=== PATIENT | female | born 1960 | race Caucasian/White ===

== ENCOUNTER → 2021-04-13 17:32 | Outpatient (REF) | payer MEDICAID, SELFPAY ==
[2021-04-13 17:46] LABS: Microscopic, Urine URINE MICROSCOPIC (MICROSCOPIC)
[2021-04-13 18:06] LABS: Appearance,Urine CLEAR (Clear); Bilirubin,Urine Negative (Negative); Blood, Urine 3+ (Negative); Color,Urine YELLOW (Yellow); Glucose,Urine (UA) Negative (Negative); Ketones,Urine Negative (Negative); Leukocyte Esterase,Urine 1+ (Negative); Nitrate,Urine POSITIVE (Negative); PH,Urine 7.5 (5.0-8.5); Protein,Urine 2+ (Negative); Specific Gravity, Urine 1.015 (1.005-1.030); Urobilinogen,Urine 0.2 EU/dl (0.2)
[2021-04-13 18:08] LABS: WBC,Urine TNTC #/hpf (0-3)
[2021-04-13 18:09] LABS: Bacteria,Urine 4+ /lpf
== END ==
LOC: LAB.DROPOF 17:32
PROVIDERS: Visit Provider Internal Medicine Adolescent Medicine
DX: N39.0 Urinary tract infection, site not specified (principal)
CPT/HCPCS: 81001; 87086; 87088; 87186

== ENCOUNTER 2022-02-21 08:46 | Outpatient (CLI) | payer MEDICAID, SELFPAY ==
[2022-02-21] VITALS (19 sets, daily range): BP systolic 128–169; BP diastolic 64–86; PULSE 60–73; RESP 15–18; TEMP 36–36.4; O2SAT 94–98; BMI 27.9
[2022-02-21 09:40] LABS: Hematocrit 23.6 % (37.0-47.0); Hemoglobin 7.8 g/dL (12.2-16.2)
[2022-02-21 16:03] LABS: Hematocrit 31.2 % (37.0-47.0)
[2022-02-21 16:18] LABS: Hemoglobin 10.7 g/dL (12.2-16.2)
== END 2022-02-21 15:54 | disposition home or self-care (01) ==
LOC: INF 08:47
PROVIDERS: Visit Provider Nurse Practitioner Family
DX: D64.9 Anemia, unspecified (principal)
CPT/HCPCS: 36430; 85014; 85018; 86850; P9016

== ENCOUNTER → 2022-08-05 14:07 | Outpatient (POV) | payer MEDICAID, SELFPAY | PROVIDERS: Visit Provider Internal Medicine Nephrology | DX: Z00.00 Encounter for general adult medical examination without abnormal findings (principal) ==

== ENCOUNTER 2022-08-13 09:37 | Outpatient (CLI) | payer MEDICAID, SELFPAY ==
[2022-08-13 10:05] VITALS: BP 135/86; PULSE 79; RESP 18; O2SAT 96
--- NOTE | 2022-08-13 10:50 | PC.NURSE ---
0060-called [facility];gave report to iza; notified that pt had had vomiting.
[2022-08-13 10:55] VITALS: BP 159/73; PULSE 81; RESP 18; TEMP 36.4; O2SAT 96
== END 2022-08-13 10:55 | disposition home or self-care (01) ==
LOC: INF 09:40
PROVIDERS: PCP Internal Medicine Adolescent Medicine; Visit Provider Internal Medicine Nephrology
DX: D64.9 Anemia, unspecified (principal)
CPT/HCPCS: 96365; J1439

== ENCOUNTER → 2022-08-17 23:39 | Outpatient (CLI) | payer MEDICAID, SELFPAY ==
[2022-08-18 00:36] LABS: Basophils % 0.1 % (0.1-2.0); Eosinophils # 0.1 K/mm3 (0.0-0.4); Lymphocytes # 0.4 K/mm3 (0.7-4.5); Mean Corpuscular Volume 96.3 fl (81-99); Monocytes # 0.5 K/mm3 (0.1-1.0)
[2022-08-18 00:43] LABS: Eosinophils % 0.4 % (0.1-12.0); Lymphocytes % 2.8 % (10-50); Mean Corpuscular HGB Conc 31.4 g/dL (31.8-35.4); Mean Corpuscular Hemoglobin 30.2 pg (27.0-31.2); Mean Platelet Volume 8.2 fl (7.4-10.4); Monocytes % 3.6 % (1.7-9.3); Neutrophils # 13.5 K/mm3 (1.8-7.8); Neutrophils % 93.1 % (37.0-80.0); Platelet Count 545 K/mm3 (142-424); Red Blood Count 1.98 M/mm3 (4.20-5.40); Red Cell Distribution Width 12.7 % (11.5-17.5); White Blood Count 14.5 K/mm3 (4.8-10.8)
[2022-08-18 00:49] LABS: MANUAL DIFFERENTIAL MANUAL DIFFERENTIAL (MANUAL DIFF)
[2022-08-18 01:08] LABS: Hypochromasia 1+; Lymphocytes % 5 % (10-50); Neutrophils % 89 % (42-76); Platelet Estimate Slight Increase; Rouleaux 3+; Total Cells Counted 100
[2022-08-18 01:22] LABS: Alanine Aminotransferase 14 U/L (12-78); Albumin Level 3.1 g/dl (3.5-5.0); Albumin/Globulin Ratio 1.3 (1.1-1.8); Alkaline Phosphatase 98 U/L (38-126); Anion Gap 28.7 mEq/L (5-15); Aspartate Amino Transferase 10 U/L (14-36); Bilirubin,Total 0.7 mg/dl (0.2-1.3); Calcium 8.2 mg/dl (8.4-10.2); Chloride 100 mmol/L (98-107); Globulin 2.3 g/dL (1.3-3.2); Glucose 79 mg/dl (74-100); Sodium 130 mmol/L (136-145); Total Protein,Serum 5.4 g/dl (6.3-8.2)
[2022-08-18 01:25] LABS: Carbon Dioxide 9 mmol/L (22.0-30.0); Potassium 7.7 mmoL/L (3.5-5.1)
[2022-08-18 01:26] LABS: Blood Urea Nitrogen 150 mg/dl (7-17); Estimated Glomerular Filt Rate 4 ml/min (>60); GFR (African American) 4 ML/MIN (>60)
== END ==
PROVIDERS: PCP Internal Medicine Adolescent Medicine; Visit Provider Internal Medicine Adolescent Medicine
DX: D64.9 Anemia, unspecified (principal); E87.5 Hyperkalemia
CPT/HCPCS: 80053; 85007; 85025

== ENCOUNTER 2022-08-18 01:31 | Emergency (ER) | payer MEDICAID, SELFPAY ==
[2022-08-18] VITALS (20 sets, daily range): BP systolic 101–159; BP diastolic 50–105; PULSE 65–107; RESP 13–20; TEMP 36.4–36.7; O2SAT 90–99; BMI 28.3; BMI 30.7
--- NOTE | 2022-08-18 01:26 | XR_ITS ---
PROCEDURE INFORMATION: Exam: XR Chest Exam date and time: 08/18/2022 1:54 AM Age: 62 years old Clinical indication: Cough TECHNIQUE: Imaging protocol: Radiologic exam of the chest. Views: 1 view. COMPARISON: No relevant prior studies available. FINDINGS: Lungs: Unremarkable. No consolidation. Pleural spaces: Unremarkable. No pleural effusion. No pneumothorax. Heart/Mediastinum: Unremarkable. No cardiomegaly. Bones/joints: Unremarkable. IMPRESSION: No acute cardiopulmonary abnormality.
--- NOTE | 2022-08-18 01:28 | HMH.EDGENADL ---
Discharge Plan Disposition Patient Disposition: Xfer Short-Term Hosp Chief Complaint: Recheck/Abnormal Lab/Rx Prescriptions Prescriptions: No Action amlodipine 5 MG tablet 5 mg PO BID fluticasone propionate 50 MCG blister with device 50 mcg NOSTRIL-B BID atorvastatin 80 MG tablet 80 mg PO HS labetalol 200 MG tablet 200 mg PO DAILY polyethylene glycol 3350 17 GM powder in packet 17 gm PO DAILY ondansetron HCl 4 MG tablet 4 mg PO Q8 PRN (Reason: Nausea) aspirin 81 MG tablet,delayed release (DR/EC) 81 mg PO DAILY pantoprazole 20 MG tablet,delayed release (DR/EC) 20 mg PO DAILY clonidine HCl 0.2 MG tablet 0.2 mg PO BID cyanocobalamin (vitamin B-12) 1,000 MCG/ML solution 1,000 mcg SQ MONTHLY trazodone 150 MG tablet 150 mg PO HS ferrous sulfate 325 MG tablet 325 mg PO DAILY losartan 25 MG tablet 25 mg PO DAILY ascorbic acid (vitamin C) 500 MG capsule 500 mg PO DAILY Clinical Impressions Clinical Impression: Acute renal failure, Acute hyperkalemia, Anemia requiring transfusions Discharge ED Provider: Yves Canela General Adult HPI General Chief complaint: Recheck/Abnormal Lab/Rx Stated complaint: possible GI Bleed Time Seen by Provider: 08/18/22 01:28 History of Present Illness HPI narrative: UlcersPatient is a 62-year-old female with past medical history of CVA with left-sided residual, anemia of chronic disease, CKD stage IV not on dialysis who presents to the emergency department for evaluation of laboratory abnormalities. History is obtained by nursing report, patient states she has no acute complaints other than slight cough. Per nursing report hematologic labs were drawn and had multiple abnormalities including reported creatinine greater than 11, hyperkalemia of 7, hemoglobin of 6 Related Data Home Medications Medication Instructions Recorded Confirmed amlodipine 5 mg tablet 5 mg PO BID Hypertension 02/21/22 08/13/22 ascorbic acid (vitamin C) 500 mg 500 mg PO DAILY Supplement 02/21/22 08/13/22 capsule aspirin 81 mg tablet,delayed 81 mg PO DAILY hypertension 02/21/22 08/13/22 release atorvastatin 80 mg tablet 80 mg PO HS Cholesterol 02/21/22 08/13/22 clonidine HCl 0.2 mg tablet 0.2 mg PO BID Hypertension 02/21/22 08/13/22 cyanocobalamin (vitamin B-12) 1,000 mcg SQ MONTHLY Supplement 02/21/22 08/13/22 1,000 mcg/mL injection solution ferrous sulfate 325 mg (65 mg 325 mg PO DAILY anemia 02/21/22 08/13/22 iron) tablet fluticasone propionate 50 50 mcg NOSTRIL-B BID allergies 02/21/22 08/13/22 mcg/actuation blister powder for inhalation labetalol 200 mg tablet 200 mg PO DAILY Hypertension 02/21/22 08/13/22 losartan 25 mg tablet 25 mg PO DAILY Hypertension 02/21/22 08/13/22 ondansetron HCl 4 mg tablet 4 mg PO Q8 PRN Nausea 02/21/22 08/13/22 pantoprazole 20 mg tablet,delayed 20 mg PO DAILY GERD 02/21/22 08/13/22 release polyethylene glycol 3350 17 gram 17 gm PO DAILY constipation 02/21/22 08/13/22 oral powder packet trazodone 150 mg tablet 150 mg PO HS insomia 02/21/22 08/13/22 Allergies Allergy/AdvReac Type Severity Reaction Status Date / Time hydrocodone Allergy Intermediate Verified 02/21/22 09:06 [facility] Medical History (Updated 08/18/22 @ 04:09 by Yves Canela MD) Anemia Anxiety and depression Cerebral infarction Chronic kidney disease Constipation GERD (gastroesophageal reflux disease) Hemiplegia and hemiparesis following cerebral infarction affecting left non-dominant side Hyperlipidemia Hypertension Psychophysiological insomnia Type 2 diabetes mellitus Surgical History (Updated 08/13/22 @ 14:49 by Quin Arreguin RN) Surgical history unknown Family History (Updated 08/13/22 @ 14:48 by Quin Arreguin RN) Other Unknown family medical history Social History (Updated 08/13/22 @ 14:48 by Quin Arreguin RN) Smoking Status: Never smoke
--- NOTE | 2022-08-18 01:30 | ECG_ITS ---
APPROVED REPORT Exam: Resting ECG HR:81 bpm ECG Measurements Heart Rate 81 AXES NJ 241 P 62 QRSd 109 QRS -12 QT 366 T 109 QTc 403 Conclusion SINUS RHYTHM WITH FIRST DEGREE AV BLOCK NONSPECIFIC T-WAVE ABNORMALITY ABNORMAL ECG UNCONFIRMED REPORT Electronically signed by : Willian Krishnan MD 08/22/2022 16:04:45
--- NOTE | 2022-08-18 01:33 | PC.NURSE ---
Dr. Canela notified of critical labs that were obtained @ intermediate @ 2200. Pt in ER now. New labs ordered and obtained
[2022-08-18 01:47] LABS: Basophils % 0.1 % (0.1-2.0); Eosinophils # 0.1 K/mm3 (0.0-0.4); Eosinophils % 0.5 % (0.1-12.0); Lymphocytes # 0.4 K/mm3 (0.7-4.5); Lymphocytes % 2.7 % (10-50); Mean Corpuscular HGB Conc 31.2 g/dL (31.8-35.4); Mean Corpuscular Hemoglobin 30.2 pg (27.0-31.2); Mean Corpuscular Volume 96.7 fl (81-99); Mean Platelet Volume 7.8 fl (7.4-10.4); Monocytes # 0.4 K/mm3 (0.1-1.0); Monocytes % 2.8 % (1.7-9.3); Neutrophils # 14.1 K/mm3 (1.8-7.8); Platelet Count 614 K/mm3 (142-424); Red Blood Count 2.07 M/mm3 (4.20-5.40); Red Cell Distribution Width 12.7 % (11.5-17.5)
[2022-08-18 01:49] LABS: Coronavirus 19, PCR Not Detected (NotDetected); Influenza A, PCR Not Detected (NotDetected)
[2022-08-18 01:50] LABS: Hemoglobin 6.3 g/dL (12.2-16.2)
[2022-08-18 01:57] LABS: Occult Blood,Stool Negative (Negative)
--- NOTE | 2022-08-18 02:02 | PC.NURSE ---
Patient is now on wait list at .
[2022-08-18 02:03] LABS: Alanine Aminotransferase 14 U/L (12-78); Albumin Level 3.5 g/dl (3.5-5.0); Albumin/Globulin Ratio 1.2 (1.1-1.8); Alkaline Phosphatase 104 U/L (38-126); Anion Gap 28.6 mEq/L (5-15); Aspartate Amino Transferase 10 U/L (14-36); Bilirubin,Total 0.9 mg/dl (0.2-1.3); Calcium 8.5 mg/dl (8.4-10.2); Chloride 100 mmol/L (98-107); Estimated Glomerular Filt Rate 3 ml/min (>60); Glucose 100 mg/dl (74-100); Magnesium 2.1 mg/dl (1.6-2.3); Sodium 131 mmol/L (136-145); Total Protein,Serum 6.5 g/dl (6.3-8.2)
[2022-08-18 02:06] LABS: Carbon Dioxide 10 mmol/L (22.0-30.0); Potassium 7.6 mmoL/L (3.5-5.1)
--- NOTE | 2022-08-18 02:06 | PC.NURSE ---
Called [facility] to discuss patient transfer. Advised that the patient would be on a wait list for several days. notified. Will return call to [place].
--- NOTE | 2022-08-18 02:09 | PC.NURSE ---
Dr. Canela ordered 1 unit of PRBC. Lab notified
--- NOTE | 2022-08-18 02:14 | PC.NURSE ---
PT WITH EXTRA LARGE BLACK TARRY FOUL SMELLING STOOL NOTED. PT CLEANED WITH ASSIST PER SAYRA DORAN.
--- NOTE | 2022-08-18 02:15 | CT_ITS ---
PROCEDURE INFORMATION: Exam: CT Abdomen And Pelvis Without Contrast Exam date and time: 08/18/2022 2:20 AM Age: 62 years old Clinical indication: Abnormal findings; Abnormal lab test; Abnormal kidney function lab tests; Abdominal tenderness; Additional info: Purulence from urethra, lelia creatinine 11 TECHNIQUE: Imaging protocol: Computed tomography of the abdomen and pelvis without contrast. Radiation optimization: All CT scans at this facility use at least one of these dose optimization techniques: automated exposure control; mA and/or kV adjustment per patient size (includes targeted exams where dose is matched to clinical indication); or iterative reconstruction. COMPARISON: CR XR CHEST PORTABLE 08/18/2022 1:54 AM FINDINGS: Lungs: Clear basilar lung parenchyma. Heart: Low-attenuation intra cardiac blood pool is concerning for severe anemia. Liver: Normal configuration. Homogeneous parenchyma. Gallbladder and bile ducts: No regional inflammation. No calcified stones. No ductal dilation. Pancreas: Normal. No ductal dilation. Spleen: Normal. No splenomegaly. Adrenal glands: Normal configuration. Kidneys and ureters: Kidneys are atrophic and contain numerous large staghorn type stones. No ureteral stones are demonstrated. Stomach and bowel: Decompressed stomach. Normal caliber small bowel. Diverticulosis noted in the distal colon. Abundant fecal debris is evident in the rectum. Appendix: Normal appendix is confirmed. Intraperitoneal space: No free air. No significant fluid collection. Vasculature: Diffuse arterial calcification without aneurysm. Lymph nodes: No enlarged lymph nodes. Urinary bladder: Catheterized urinary bladder. Reproductive: Unilocular cyst in the left adnexa measures 6.1 x 5.1 x 5.6 cm. Bones/joints: No fracture or destructive lesion. Soft tissues: Unremarkable. IMPRESSION: 1. Atrophic kidneys are noted with staghorn type calculi bilaterally. No ureteral obstruction. Catheterized urinary bladder. 2. Incidental unilocular cyst in the left adnexa. Further evaluation with prompt non-emergent ultrasound is recommended to characterize. (Reference: Yonny) REFERENCES: Yonny et al. Management of Incidental Adnexal Findings on CT and MRI: A White Paper of the ACR Incidental Findings Committee, J Am Shlomo Radiol. 2020 Dec;17(2):248-254.
[2022-08-18 02:22] LABS: Blood Urea Nitrogen 160 mg/dl (7-17); GFR (African American) 4 ML/MIN (>60)
--- NOTE | 2022-08-18 02:22 | PC.NURSE ---
Dr. Canela s/w Dr. Obregon @ [facility] for possible transfer
[2022-08-18 02:27] LABS: Influenza B, PCR Not Detected (NotDetected)
--- NOTE | 2022-08-18 02:37 | PC.NURSE ---
Dr. Canela s/w Dr. Saleh (neuro) with [facility].
[2022-08-18 03:03] LABS: Microscopic,Cath URINE MICROSCOPIC (MICROSCOPIC)
--- NOTE | 2022-08-18 03:03 | PC.NURSE ---
speaking with at
[2022-08-18 03:21] LABS: Appearance,Urine/Cath TURBID (Clear); Bilirubin,Cath Negative (Negative); Blood, Urine/Cath 3+ (Negative); Color,Urine/Cath RED (Yellow); Glucose,Urine/Cath (UA) Negative (Negative); Ketones,Urine/Cath Negative (Negative); Leukocyte Esterase,Cath 3+ (Negative); Nitrate,Cath POSITIVE (Negative); PH,Urine/Cath 8.5 (5.0-8.5); Protein,Urine/Cath 3+ (Negative); Specific Gravity, Urine/Cath 1.015 (1.005-1.030); Urobilinogen,Cath 0.2 EU/dl (0.2)
--- NOTE | 2022-08-18 03:21 | PC.NURSE ---
Called [facility] per pt transfer they will call back
[2022-08-18 03:22] LABS: RBC,Urine/Cath 50-100 # /hpf (0-3); WBC,Urine/Cath TNTC #/hpf (0-3)
--- NOTE | 2022-08-18 03:39 | PC.NURSE ---
[facility] called to say that patient is now being put on a wait list. MD aware.
--- NOTE | 2022-08-18 03:50 | PC.NURSE ---
Spoke with Savannah at the access center at [facility] regarding patient transfer. Nidia is going to call back.
--- NOTE | 2022-08-18 03:55 | PC.NURSE ---
CONSENT FOR TRANSFUSION OBTAINED. SIGNS AND SYMPTOMS OF TRANSFUSION REACTION REVIEWED. PT VERBALIZES UNDERSTANDING.
--- NOTE | 2022-08-18 04:02 | PC.NURSE ---
Addendum entered by Brooklyn Valentine RN 08/18/22 04:55: After s/w with Dr. Fry, transfer center stated oh no this was in [facility] She then paged for [facility] hospitalist- Dr. Maria Original Note: Dr. Canela s/w Dr. Fry hospitalist for [facility]
--- NOTE | 2022-08-18 04:04 | PC.NURSE ---
Dr. Canela s/w Dr. Dennis Singer @ [facility]
[2022-08-18 04:08] LABS: VBG Base Excess -19.9 mmol/L (-2.4-2.3); VBG Oxygen Saturation 89.4 % (50-70); VBG PCO2 34.1 mmol/L (35-51)
[2022-08-18 04:09] LABS: VBG PH 7.09 mmol/L (7.31-7.41)
--- NOTE | 2022-08-18 04:13 | PC.NURSE ---
Spoke with Will with resp regarding patients vbg results and was told that patinet had critical results. MD notified. No new orders.
--- NOTE | 2022-08-18 05:34 | PC.NURSE ---
Called [facility], gave report to Jose GUPTA in the ER. updated on [place] on POC and pt transfer.
--- NOTE | 2022-08-18 05:41 | PC.NURSE ---
[facility] TRANSFUSION COMPLETE. PT TOLERATED WELL. PT AWARE OF PLAN TO FLY TO FACILITY IN [place] FOR HIGHER LEVEL OF CARE. PT DENIES ALL SIGNS AND SYMPTOMS OF TRANSFUSION REACTION.
--- NOTE | 2022-08-18 05:41 | PC.NURSE ---
[facility] INFUSION COMPLETE
--- NOTE | 2022-08-18 06:12 | PC.NURSE ---
Updated [facility]. They states they s/w pt's sister Kellie for updates. They stated that her sisters are out of state but we called them . Confirmed we had the correct numbers for contact. Attempted to call, no answer and not able to leave voicemail.
--- NOTE | 2022-08-18 06:17 | PC.NURSE ---
@0600 [employer] here and gave report. Assisted pt transfer to flight stretcher. Pt's purse, is the only belonging brought from [facility], assured this was on her lap for transport. Pt now c/o nausea. Per , ordered Zofran 4 mg IVP 1x. administered to LAC PIV. House assisted with ground control. Flight crew left @ 0610.
[2022-08-18 08:30] LABS: POC Glucose,Bedside 293 (70-110)
== END 2022-08-18 06:02 | disposition short-term general hospital (02) ==
PROVIDERS: Emergency Provider Emergency Medicine; PCP Internal Medicine Adolescent Medicine
DX: I12.9 Hypertensive chronic kidney disease with stage 1 through stage 4 chronic kidney disease, or unspecified chronic kidney disease (principal); N17.8 Other acute kidney failure; N18.4 Chronic kidney disease, stage 4 (severe); E87.5 Hyperkalemia; D64.9 Anemia, unspecified; I69.821 Dysphasia following other cerebrovascular disease; E11.9 Type 2 diabetes mellitus without complications; F51.04 Psychophysiologic insomnia; G47.9 Sleep disorder, unspecified; I69.354 Hemiplegia and hemiparesis following cerebral infarction affecting left non-dominant side; K21.9 Gastro-esophageal reflux disease without esophagitis; F41.9 Anxiety disorder, unspecified; F32.A Depression, unspecified
CPT/HCPCS: 51702; 71045; 74176; 80053; 81001; 82272; 82803; 82962; 83735; 85025; 86850; 87040; 87077; 87086; 87088; 87186; 93005; 96365; 96366; 96367; 96375; 99291; C9803; G0328; J0696; J2405; P9016; U0003; U0005

== ENCOUNTER 2022-10-19 11:53 | Emergency (ER) | payer MEDICAID, SELFPAY ==
[2022-10-19] VITALS (12 sets, daily range): BP systolic 134–174; BP diastolic 67–85; PULSE 70–79; RESP 15–21; TEMP 36.9; O2SAT 94–97; BMI 27.6
--- NOTE | 2022-10-19 13:41 | PC.NURSE ---
SO called for update
--- NOTE | 2022-10-19 14:14 | HMH.EDEXTP ---
Discharge Plan Disposition Patient Disposition: Home, Self-Care Condition: Fair Prescriptions Prescriptions: No Action amlodipine 5 MG tablet 5 mg PO BID atorvastatin 80 MG tablet 80 mg PO HS aspirin 81 MG tablet,delayed release (DR/EC) 81 mg PO DAILY pantoprazole 20 MG tablet,delayed release (DR/EC) 20 mg PO DAILY clonidine HCl 0.2 MG tablet 0.2 mg PO BID cyanocobalamin (vitamin B-12) 1,000 MCG/ML solution 1,000 mcg SQ MONTHLY trazodone 150 MG tablet 150 mg PO HS losartan 25 MG tablet 50 mg PO DAILY carvedilol 25 mg Tablet 25 mg PO BID oxycodone 5 mg Tablet 5 mg PO Q6 apixaban 5 mg Tablet 5 mg PO BID Referrals Follow up/Referrals: Willian Krishnan MD [Primary Care Provider] - See instructions Activity Restrictions/Add. Instructions Additional Instructions/Restrictions: May use Maciel wrap, lightly wrapped from hand to below elbow. Do not put Maciel wrap over the site of the vascular graft. Follow-up at the [facility] vascular surgery clinic on Friday. [facility] will call you to arrange. Clinical Impressions Clinical Impression: Edema of left upper extremity, Arm pain, left Discharge ED Provider: Kade Lyon Extremity Problem HPI General Chief complaint: Extremity Problem,Nontraumatic Stated complaint: port placement issue Time Seen by Provider: 10/19/22 13:48 Mode of Arrival: EMS Source of Information: Patient Limitations: No Limitations Description of Symptoms (Recalled from ER Triage Doc. by RN): pt to ed c/o left arm swelling and pain. pt reports having a fistula placed on . pt states she has numbness and tingling to the extremity. History of Present Illness HPI Narrative: The patient states that she had a vascular procedure on her left arm at the [facility] 9 days ago for dialysis. She thinks it is a fistula. She says that ever since the surgery she has had pain in her left upper extremity and tingling of her left hand. For the past 2 days, however, she has had a large amount of swelling of her arm and the pain has worsened. Pain is currently controlled because she took a pain pill prior to being brought here. [facility] a [facility]. She has had a previous stroke leaving her with a left hemiparesis with contractures of her arm. She is a hemodialysis patient. 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 alf notes states that the patient has edema of her left arm, weak pulse, weak bruit/thrill, warm to touch, moderate drainage. Patient is noted to be on apixaban. Related Data Home Medications Medication Instructions Recorded Confirmed amlodipine 5 mg tablet 5 mg PO BID Hypertension 02/21/22 10/19/22 aspirin 81 mg tablet,delayed 81 mg PO DAILY hypertension 02/21/22 10/19/22 release atorvastatin 80 mg tablet 80 mg PO HS Cholesterol 02/21/22 10/19/22 clonidine HCl 0.2 mg tablet 0.2 mg PO BID Hypertension 02/21/22 10/19/22 cyanocobalamin (vitamin B-12) 1,000 mcg SQ MONTHLY Supplement 02/21/22 10/19/22 1,000 mcg/mL injection solution losartan 25 mg tablet 50 mg PO DAILY Hypertension 02/21/22 10/19/22 pantoprazole 20 mg tablet,delayed 20 mg PO DAILY GERD 02/21/22 10/19/22 release trazodone 150 mg tablet 150 mg PO HS insomia 02/21/22 10/19/22 apixaban 5 mg tablet 5 mg PO BID blood clots 10/19/22 10/19/22 carvedilol 25 mg tablet 25 mg PO BID cardiac 10/19/22 10/19/22 oxycodone 5 mg tablet 5 mg PO Q6 Pain 10/19/22 10/19/22 Allergies Allergy/AdvReac Type Severity Reaction Status Date / Time hydrocodone Allergy Intermediate Verified 02/21/22 09:06 [facility] Medical History (Updated 10/19/22 @ 16:45 by Kade Lyon MD) Anemia Anxiety and depression Cerebral infarction Chronic kidney disease Constipation GERD (gastroesophageal reflux disease) Hemiplegia and
--- NOTE | 2022-10-19 14:20 | PC.NURSE ---
Calling [facility] for consult
--- NOTE | 2022-10-19 14:22 | CA_ITS ---
FINAL REPORT TECHNIQUE: Graded compression, spectral analysis and ultrasound images of the venous system of the upper extremity were obtained. CLINICAL HISTORY: edema, pain LUE after dialysis graft placed, Patient had a fistula placed in left upper arm 9 days ago. Pain, swelling, and numbness since. She has a history of CVA and left arm contracture. Unable to manipulate or move arm. Best exam possible FINDINGS: The jugular vein, subclavian vein, axillary vein, brachial vein, cephalic vein and basilic venous system are normal, fully compressible and demonstrate no evidence of thrombosis. IMPRESSION: No evidence of thrombosis of the venous system of the left upper extremity. Reviewed, Interpreted and Dictated by Gladis Galicia MD Transcribed by Reshma Walters Authenticated and [facility]
--- NOTE | 2022-10-19 14:33 | PC.NURSE ---
doppler called in for pt
--- NOTE | 2022-10-19 15:32 | PC.NURSE ---
doppler at the bedside
[2022-10-19 16:12] LABS: Chloride 99 mmol/L (98-107); Potassium 3.5 mmoL/L (3.5-5.1); Sodium 139 mmol/L (136-145)
[2022-10-19 16:15] LABS: Anion Gap 8.5 mEq/L (5-15); Blood Urea Nitrogen 23 mg/dl (7-17); Calcium 9.1 mg/dl (8.4-10.2); Carbon Dioxide 35 mmol/L (22.0-30.0); Creatinine Clearance Estimated 24 mL/min (50-200); Estimated Glomerular Filt Rate 15 ml/min (>60); GFR (African American) 19 ML/MIN (>60); Glucose 93 mg/dl (74-100)
[2022-10-19 16:20] LABS: Basophils # 0.1 K/mm3 (0-0.2); Basophils % 0.7 % (0.1-2.0); Eosinophils # 0.2 K/mm3 (0.0-0.4); Eosinophils % 2.6 % (0.1-12.0); Hematocrit 30.5 % (37.0-47.0); Hemoglobin 9.2 g/dL (12.2-16.2); Lymphocytes # 1.7 K/mm3 (0.7-4.5); Lymphocytes % 22.3 % (10-50); Mean Corpuscular HGB Conc 30.2 g/dL (31.8-35.4); Mean Corpuscular Hemoglobin 30.2 pg (27.0-31.2); Mean Platelet Volume 8.1 fl (7.4-10.4); Monocytes # 0.4 K/mm3 (0.1-1.0); Monocytes % 5.8 % (1.7-9.3); Neutrophils # 5.1 K/mm3 (1.8-7.8); Neutrophils % 68.6 % (37.0-80.0); Platelet Count 396 K/mm3 (142-424); Red Blood Count 3.05 M/mm3 (4.20-5.40); Red Cell Distribution Width 14.4 % (11.5-17.5); White Blood Count 7.5 K/mm3 (4.8-10.8)
== END 2022-10-19 17:14 | disposition home or self-care (01) ==
PROVIDERS: Emergency Provider Emergency Medicine; PCP Internal Medicine Adolescent Medicine
DX: M79.602 Pain in left arm (principal); R60.0 Localized edema; Y83.9 Surgical procedure, unspecified as the cause of abnormal reaction of the patient, or of later complication, without mention of misadventure at the time of the procedure; I63.89 Other cerebral infarction; G81.94 Hemiplegia, unspecified affecting left nondominant side; Z79.82 Long term (current) use of aspirin; Z79.899 Other long term (current) drug therapy; Z88.6 Allergy status to analgesic agent; D64.9 Anemia, unspecified; F41.9 Anxiety disorder, unspecified; F32.A Depression, unspecified; E11.22 Type 2 diabetes mellitus with diabetic chronic kidney disease; I12.9 Hypertensive chronic kidney disease with stage 1 through stage 4 chronic kidney disease, or unspecified chronic kidney disease; N18.9 Chronic kidney disease, unspecified; E78.5 Hyperlipidemia, unspecified
CPT/HCPCS: 80048; 85025; 93971; 99284

== ENCOUNTER → 2022-12-24 10:31 | Outpatient (CLI) | payer MEDICAID, SELFPAY ==
[2022-12-24 18:05] LABS: Microscopic, Urine URINE MICROSCOPIC (MICROSCOPIC)
[2022-12-24 19:13] LABS: Appearance,Urine CLOUDY (Clear); Bilirubin,Urine Negative (Negative); Blood, Urine 3+ (Negative); Color,Urine BROWN (Yellow); Glucose,Urine (UA) Negative (Negative); Ketones,Urine TRACE (Negative); Leukocyte Esterase,Urine 2+ (Negative); Nitrate,Urine POSITIVE (Negative); PH,Urine 8.5 (5.0-8.5); Protein,Urine 3+ (Negative); Specific Gravity, Urine 1.015 (1.005-1.030); Urobilinogen,Urine 0.2 EU/dl (0.2)
[2022-12-24 19:33] LABS: WBC,Urine TNTC #/hpf (0-3)
[2022-12-24 19:34] LABS: Bacteria,Urine 1+ /lpf; Squamous Epithelial Cell,Urine Occasional #/hpf (0-5)
== END ==
PROVIDERS: PCP Internal Medicine Adolescent Medicine; Visit Provider Nurse Practitioner Family
DX: N39.0 Urinary tract infection, site not specified (principal); B96.4 Proteus (mirabilis) (morganii) as the cause of diseases classified elsewhere
CPT/HCPCS: 81001; 87086; 87088; 87186

== ENCOUNTER → 2023-04-15 10:52 | Outpatient (CLI) | payer MEDICAID, SELFPAY ==
--- NOTE | 2023-04-15 10:59 | MR_ITS ---
FINAL REPORT CLINICAL HISTORY: BONY SCLEROSIS..PAIN IN HIP FINDINGS: Multiplanar MR imaging of the right hip was performed without contrast. Motion artifact is identified on many of the images. There is no evidence of fracture or dislocation. There is no evidence of avascular necrosis. No bony mass is identified. No labral tear is identified. Small joint effusion is seen. The tendons are intact. The musculature is intact. No soft tissue mass or cyst is identified. There is a stool-filled distended rectum measuring up to 10 cm consistent with fecal impaction. IMPRESSION: Findings consistent with fecal impaction. Reviewed, Interpreted and Dictated by Brian Nielsen III, MD Transcribed by Mally Molina Authenticated and [facility]
--- NOTE | 2023-04-15 10:59 | MR_ITS ---
FINAL REPORT CLINICAL HISTORY: left hip pain sclerosis FINDINGS: Multiplanar MR imaging of the left hip was performed without contrast. There is no evidence of fracture or dislocation. There is no evidence of avascular necrosis. No bony mass is identified. There is a superior labral tear. A small left hip joint effusion is seen. The tendons are intact. The musculature is intact. The rectum is stool-filled and distended up to 10 cm consistent with fecal impaction. IMPRESSION: Superior left labral tear. Fecal impaction. Reviewed, Interpreted and Dictated by Brian Nielsen III, MD Transcribed by Cesar Raphael Authenticated and [facility]
== END ==
LOC: RAD 10:52
PROVIDERS: PCP Internal Medicine Adolescent Medicine; Visit Provider Nurse Practitioner Family
DX: M25.552 Pain in left hip (principal); Q78.2 Osteopetrosis
CPT/HCPCS: 73721

== ENCOUNTER → 2023-11-13 13:56 | Outpatient (CLI) | payer MEDICAID, SELFPAY ==
[2023-11-13 14:06] LABS: Microscopic, Urine URINE MICROSCOPIC (MICROSCOPIC)
[2023-11-13 14:14] LABS: Appearance,Urine CLEAR (Clear); Bilirubin,Urine Negative (Negative); Blood, Urine 1+ (Negative); Color,Urine YELLOW (Yellow); Glucose,Urine (UA) Negative (Negative); Ketones,Urine Negative (Negative); Leukocyte Esterase,Urine 2+ (Negative); Nitrate,Urine Negative (Negative); PH,Urine 8.5 (5.0-8.5); Protein,Urine 2+ (Negative); Specific Gravity, Urine 1.015 (1.005-1.030); Urobilinogen,Urine 0.2 EU/dl (0.2)
[2023-11-13 14:29] LABS: Amorphous Sediment,Urine 1+ /lpf; Bacteria,Urine 2+ /lpf; WBC,Urine TNTC #/hpf (0-3)
== END ==
LOC: LAB.DROPOF 13:59
PROVIDERS: PCP Nurse Practitioner Family; Visit Provider Nurse Practitioner Family
DX: R34 Anuria and oliguria (principal); R30.0 Dysuria; R31.9 Hematuria, unspecified; B96.4 Proteus (mirabilis) (morganii) as the cause of diseases classified elsewhere
CPT/HCPCS: 81001; 87086

== ENCOUNTER 2025-01-15 23:09 | Outpatient (CLI) | payer MEDICARE, MEDICAID, SELFPAY ==
[2025-01-15 23:21] LABS: Microscopic, Urine URINE MICROSCOPIC (MICROSCOPIC)
[2025-01-15 23:24] LABS: Appearance,Urine CLOUDY (Clear); Bilirubin,Urine Negative (Negative); Blood, Urine 3+ (Negative); Color,Urine RED (Yellow); Glucose,Urine (UA) TRACE (Negative); Ketones,Urine TRACE (Negative); Leukocyte Esterase,Urine TRACE (Negative); Nitrate,Urine POSITIVE (Negative); PH,Urine 8.5 (5.0-8.5); Protein,Urine 2+ (Negative); Specific Gravity, Urine 1.015 (1.005-1.030)
[2025-01-15 23:44] LABS: Bacteria,Urine Trace /lpf; RBC,Urine TNTC #/hpf (0-3); WBC,Urine Occasional #/hpf (0-3)
== END 2025-01-15 23:59 | disposition home or self-care (01) ==
LOC: LAB.DROPOF 23:10
PROVIDERS: PCP Nurse Practitioner Family; Visit Provider Nurse Practitioner Family
DX: R31.0 Gross hematuria (principal)
CPT/HCPCS: 81001; 87086; 87088; 87186